=== PATIENT | male | born 1970 | race Caucasian/White ===

== ENCOUNTER 2018-03-11 02:55 | Emergency (ER) | payer OTHER ==
[2018-03-11] MEDS ORDERED: Erythromycin OPTH OINT* APPLIC OINT ONE (03:58)
[2018-03-11 06:30] VITALS: BP 129/76
--- NOTE | 2018-04-07 17:41 | ED ---
Throat Pain/Nasal Congestion - HPI Summary HPI Summary: Pt comes to ED with complaint of right eye pain and irritation. He thinks he may have gotten a piece of wood in the eye earlier today. Severity is moderate. - Allergies/Home Medications Allergies/Adverse Reactions: Allergies Allergy/AdvReac Type Severity Reaction Status Date / Time No Known Allergies Allergy Verified 06/23/16 10:53 PMH/Surg Hx/FS Hx/Imm Hx Endocrine/Hematology History: Denies: Hx Anticoagulant Therapy, Hx Diabetes, Hx Thyroid Disease Cardiovascular History: Denies: Hx Congestive Heart Failure, Hx Deep Vein Thrombosis, Hx Hypertension , Hx Myocardial Infarction, Hx Pacemaker/ICD Respiratory History: Denies: Hx Asthma, Hx Chronic Obstructive Pulmonary Disease (COPD), Hx Lung Cancer, Hx Pneumonia, Hx Pulmonary Embolism GI History: Denies: Hx Gall Bladder Disease, Hx Gastrointestinal Bleed, Hx Ulcer, Hx Urosepsis History: Denies: Hx Dialysis, Hx Kidney Stones, Hx Renal Disease Sensory History: Denies: Hx Hearing Aid Neurological History: Denies: Hx Dementia, Hx Migraine, Hx Seizures, Hx Transient Ischemic Attacks (TIA) Psychiatric History: Denies: Hx Anxiety, Hx Depression, Hx Panic Disorder, Hx Schizophrenia, Hx Bipolar Disorder - Surgical History Surgery Procedure, Year, and Place: 1998 L5-S1 LAMINECTOMY,TONSILECTOMY - Immunization History Date of Tetanus Vaccine: 2-3 yrs ago Date of Influenza Vaccine: 2013 flu season Infectious Disease History: Denies: Hx Clostridium Difficile, Hx Hepatitis, Hx of Known/Suspected MRSA, History Other Infectious Disease, Traveled Outside the [place] in Last 30 Days - Family History Known Family History: Positive: Hypertension, Diabetes, Other - RA - Social History Alcohol Use: Occasionally Substance Use Type: Reports: None Smoking Status (MU): Heavy Every Day Tobacco Smoker Type: Cigarettes Amount Used/How Often: 1 PPD Length of Time of Smoking/Using Tobacco: started at age 19 Have You Smoked in the Last Year: Yes Review of Systems Positive: Other - no photophobia or blurred vision All Other Systems Reviewed And Are Negative: No Physical Exam Triage Information Reviewed: Yes Vital Signs On Initial Exam: Initial Vitals Temp Pulse Resp BP Pulse Ox 36.2 C 76 18 129/76 100 03/11/18 04:00 03/11/18 04:00 03/11/18 04:00 03/11/18 04:00 03/11/18 04:00 Appearance: Positive: Well-Appearing, No Pain Distress Skin: Positive: Warm, Skin Color Reflects Adequate Perfusion Head/Face: Positive: Normal Head/Face Inspection Eyes: Positive: Other: - left eye appears normal. Right eye has mild conjunctival injection, no discharge. Fluorescein stain is negative. No FB is is seen. Diagnostics - Vital Signs Vital Signs Temp Pulse Resp BP Pulse Ox 03/11/18 04:00 36.2 C 76 18 129/76 100 - Laboratory Lab Statement: Any lab studies that have been ordered have been reviewed, and results considered in the medical decision making process. EENT Course/Dx - Diagnoses Provider Diagnoses: Conjunctivitis, right eye Discharge - Sign-Out/Discharge Documenting (check all that apply): Patient Departure - Discharge Plan Condition: Good Disposition: HOME Referrals: Millie Hodges MD [Primary Care Provider] - - Billing Disposition and Condition Condition: GOOD Disposition: Home - Attestation Statements Document Initiated by Scribe: No
== END 2018-03-11 04:00 | disposition home or self-care (01) ==
LOC: ED 02:55
DX: H10.31 Unspecified acute conjunctivitis, right eye (principal); F17.210 Nicotine dependence, cigarettes, uncomplicated
CPT/HCPCS: 99282; A9270-GY

== ENCOUNTER 2019-09-05 20:56 | Emergency (ER) | payer OTHER ==
[2019-09-05 21:06] VITALS: BP 129/67
--- NOTE | 2019-09-05 21:39 | UC ---
Upper Extremity HPI - HPI Summary HPI Summary: c/o right shoulder injury - pt fell ~2 feet off of a ladder at ~1700 tonight landing on right shoulder. Also c/o left ear pain and having bloody discharge. Pain has been going on for 2 weeks. - History of Current Complaint Chief Complaint: UCUpperExtremity Stated Complaint: ARM INJURY Time Seen by Provider: 09/05/19 21:35 Hx Obtained From: Patient Pain Intensity: 8 Pain Scale Used: 0-10 Numeric - Allergies/Home Medications Allergies/Adverse Reactions: Allergies Allergy/AdvReac Type Severity Reaction Status Date / Time No Known Allergies Allergy Verified 09/05/19 21:05 Home Medications: Home Medications Acetaminophen [Tylenol Extra Strength] 4 tab PO PRN 09/05/19 [History] Ibuprofen TAB* [Advil TAB*] 1,000 mg PO QID PRN 09/05/19 [History Confirmed ] PMH/Surg Hx/FS Hx/Imm Hx - Additional Past Medical History Additional PMH: tmj chronic Previously Healthy: Yes Other History Of: Negative For: HIV, Hepatitis B, Hepatitis C, Anticoagulant Therapy - Surgical History Surgical History: Yes Surgery Procedure, Year, and Place: 1998 L5-S1 LAMINECTOMY,TONSILECTOMY, ear tubes - Family History Known Family History: Positive: Hypertension, Diabetes, Other - RA - Social History Alcohol Use: Occasionally Substance Use Type: None Smoking Status (MU): Current Every Day Smoker Type: Cigarettes Amount Used/How Often: 1 PPD Length of Time of Smoking/Using Tobacco: started at age 19 Have You Smoked in the Last Year: Yes Review of Systems All Other Systems Reviewed And Are Negative: Yes Skin: Negative: Bruising Respiratory: Negative: Shortness Of Breath Musculoskeletal: Positive: Arthralgia - R shoulder, elbow, Decreased ROM - R shoulder/R wrist., Edema - R wrist Neurological/Mental Status: Positive: Numbness - R finger tips. Negative: Headache, Weakness, Paresthesia Physical Exam Triage Information Reviewed: Yes Appearance: Well-Appearing, Pain Distress Vital Signs: Initial Vital Signs Temp 98.1 F 09/05/19 21:01 Pulse 74 09/05/19 21:01 Resp 16 09/05/19 21:01 BP 129/67 09/05/19 21:01 Pulse Ox 95 09/05/19 21:01 Vital Signs Reviewed: Yes Respiratory: Positive: No respiratory distress Cardiovascular: Positive: Brisk Capillary Refill - R finger tips Musculoskeletal: Positive: ROM Limited @ - R shoulder, R elbow due to pain. able to open/close fingers/hand Neurological: Positive: Alert Diagnostics - Radiology No standard instances Radiology Interpretation Completed By: ED Physician Summary of Radiographic Findings: Suspect tear in R shoulder, no obvious fx. Upper Extremity Course/Dx - Course Course Of Treatment: FAll from ladder onto R shoulder/arm w/ assoc. swelling and pain. Prelim xray report does not show obvious fx but dose show some widening space in joint of R shoulder, suspect labral tear after review w/ Dr. Sepulveda. Final read in AM. Placed R arm in sling for immobility and he should contact Ortho tomorrow. For pain ibu - Differential Dx/Diagnosis Provider Diagnosis: Right shoulder injury Discharge ED - Sign-Out/Discharge Documenting (check all that apply): Patient Departure All imaging exams completed and their final reports reviewed: No - Discharge Plan Condition: Good Disposition: HOME Patient Education Materials: Shoulder Pain (ED) Referrals: Nirali Lunsford MD [Medical Doctor] - Bill Kraus MD [Medical Doctor] - Additional Instructions: Please contact Ortho tomorrow - Billing Disposition and Condition Condition: GOOD Disposition: Home - Attestation Statements Provider Attestation: This patient was not seen by me. I was available for consult. Chart reviewed. [email or web address]
--- NOTE | 2019-09-06 07:56 | UC ---
- Progress Note Progress Note: RADIOLOGY REPORT REVIEWED. CONFIRMED POSSIBLE HILL-SACHS FRACTURE. NO CHANGE IN MGMT. I CALLED AND LEFT A MESSAGE FOR PT TO CALL BACK. CONFIRM PT HAS ORTHO F/U. Course/Dx - Diagnoses Provider Diagnoses: Right shoulder injury Discharge ED - Sign-Out/Discharge Documenting (check all that apply): Post-Discharge Follow Up All imaging exams completed and their final reports reviewed: Yes - Discharge Plan Condition: Good Disposition: HOME Patient Education Materials: Shoulder Pain (ED) Referrals: Nirali Lunsford MD [Medical Doctor] - Bill Kraus MD [Medical Doctor] - Additional Instructions: Please contact Ortho tomorrow - Billing Disposition and Condition Condition: GOOD Disposition: Home
--- NOTE | 2019-09-06 10:05 | UC ---
- Progress Note Progress Note: PATIENT CALLED BACK. NAME AND DATE OF VERIFIED. I INFORMED HIM OF THE X- RAY FINDING OF A POSSIBLE HILL-SACHS FRACTURE. HE HAS ALREADY CALLED ORTHOPEDICS THIS MORNING AND IS WAITING FOR A CALL BACK TO SCHEDULE AN APPOINTMENT. HE WILL LET US KNOW IF HE HAS DIFFICULTY SECURING AN APPOINTMENT IN A TIMELY MANNER. Course/Dx - Diagnoses Provider Diagnoses: Right shoulder injury Discharge ED - Sign-Out/Discharge Documenting (check all that apply): Post-Discharge Follow Up All imaging exams completed and their final reports reviewed: Yes - Discharge Plan Condition: Good Disposition: HOME Patient Education Materials: Shoulder Pain (ED) Referrals: Nirali Lunsford MD [Medical Doctor] - Bill Kraus MD [Medical Doctor] - Additional Instructions: Please contact Ortho tomorrow - Billing Disposition and Condition Condition: GOOD Disposition: Home
== END 2019-09-05 22:23 | disposition home or self-care (01) ==
LOC: UCEAST 20:56
DX: S49.91XA Unspecified injury of right shoulder and upper arm, initial encounter (principal); W11.XXXA Fall on and from ladder, initial encounter; Y92.9 Unspecified place or not applicable; F17.210 Nicotine dependence, cigarettes, uncomplicated
CPT/HCPCS: 99213; G0463